=== PATIENT | male | born 1980 | race Caucasian/White ===

== ENCOUNTER 2018-08-06 20:56 | Emergency (ER) | payer OTHER ==
[~2018-08-06] VITALS: Ht 182.9 cm; Wt 102.1 kg
[2018-08-06] MEDS ORDERED: [UNRECOGNIZED DRUG - CODE] MC (21:26)
[2018-08-06] MEDS ORDERED: BLOOD PRESSURE (21:26)
[2018-08-06] MEDS ORDERED: LIDOCAINE 1% INJ 20 ML 20 ML VIAL INJ ONE (21:45)
--- NOTE | 2018-08-06 22:05 | ED Upper Extremity ---
General Chief Complaint: Upper Extremity Stated Complaint: FISH HOOK R HAND INDEX/OLDER LAC R LITTLE FINGER Nursing Triage Note: FISH HOOK IN RIGHT THUMB Nursing Sepsis Screen: No Definite Risk History of Present Illness Date Seen by Provider: Aug 06, 2018 Time Seen by Provider: 21:20 Initial Comments 38-year-old male presents with a fish hook in his right thumb. He has already cut the hooks off on the other 2. He attempted to remove the hook from his thumb which was unsuccessful. In addition he had a laceration to the ulnar side of his fifth finger on the right hand, he reports the wound became infected and he removed the sutures and it dehisced. He is currently on an antibiotic for that. Onset: just prior to arrival Pain/Injury Location: right thumb Method of Injury: incised (with fishhook) Allergies and Home Medications Allergies Coded Allergies: No Known Drug Allergies (Unverified , 08/06/18) Patient Home Medication List Home Medication List Reviewed: Yes Review of Systems Constitutional: no symptoms reported, see HPI Skin: see HPI, other (fishhook right thumb) All Other Systems Reviewed Negative Unless Noted: Yes Past Ogygzcd-Yiifqk-Uwtzqv Hx Past Med/Social Hx: Reviewed Nursing Past Med/Soc Hx Patient Social History Alcohol Use: Denies Use Recreational Drug Use: No Smoking Status: Current Everyday Smoker Type Used: Cigarettes 2nd Hand Smoke Exposure: Yes Recent Foreign Travel: No Contact w/Someone Who Travel: No Recent Infectious Disease Expo: No Recent Hopitalizations: No Immunizations Up To Date Tetanus Booster (TDap): Less than 5yrs Seasonal Allergies Seasonal Allergies: No Past Medical History Surgeries: Yes (HERNIA, CARDIAC STENT, RIGHT KNEE) Appendectomy, Orthopedic Respiratory: No Cardiac: Yes Coronary Artery Disease, Endocarditis, Hypertension Neurological: No Genitourinary: No Gastrointestinal: No Musculoskeletal: No Endocrine: No HEENT: No Cancer: No Psychosocial: No Integumentary: Yes Recent Skin Changes Blood Disorders: No Adverse Reaction/Blood Tranf: No Physical Exam Vital Signs Vital Signs - First Documented 08/06/18 21:15 Temp 97.7 Pulse 102 Resp 20 B/P (MAP) 135/95 (108) Pulse Ox 97 O2 Delivery Room Air Capillary Refill : Less Than 3 Seconds Height, Weight, BMI Height: 6'0" Weight: 225lbs. oz. 102.981850ee; BMI Method:Stated General Appearance: WD/WN, no apparent distress Cardiovascular: normal peripheral pulses, regular rate, rhythm Respiratory: chest non-tender, lungs clear, normal breath sounds Hand: Right, abrasions (with fishhook in pad of right thumb) Neurologic/Tendon: normal sensation, normal motor functions, normal tendon functions Neurologic/Psychiatric: no motor/sensory deficits, alert, normal mood/affect, oriented x 3 Skin: normal color, warm/dry, other (wound to the ulnar side of right fifth finger, healing by secondary intention, no erythema, drainage or warmth. Full range of motion to the thumb and fifth digit on the right, resisted flex/ext V/ V.) Procedures/Interventions I&D : Blade Size: 11 I & D Procedure: betadine prep Progress Using sterile technique, a small incision made at site of hook, able to easily remove fish hook at that time. Patient tolerated procedure well. The wound was copiously irrigated with 500 ML's of sterile saline. Triple antibiotic ointment and sterile dressing placed. Progress/Results/Core Measures Results/Orders My Orders Orders - JUAN MANUEL LIGHT Lidocaine 1% Inj 20 Ml (Xylocaine 1% Inj (08/06/18 21:45) Medications Given in ED Current Medications Medications Dose Ordered Sig/Rani Route Start Time Stop Time Status Last Admin Dose Admin Lidocaine HCl 20 ml ONCE ONCE INJ 08/06/18 21:45 08/06/18 21:46 DC 08/06/18 21:45 20 ML Vital Signs/I&O 08/06/18 08/06/18 21:15 22:08 Temp 97.7 97.7 Pulse 102 102 Resp 20 20 B/P (MAP) 135/95 (108) 135/95 (108) Pulse Ox 97 97 O2 Delivery Room Air Blood Pressure Mean: 108 Departure Impression Primary Impression: [place] injury to finger Qualified Codes: S69.91XA - Unspecified injury of right wrist, hand and finger (s), initial encounter Disposition: 01 HOME, SELF-CARE Condition: Improved Departure-Patient Inst. Decision time for Depature: 21:55 Referrals: NO,LOCAL PHYSICIAN (PCP/Family) Primary Care Physician Patient Instructions: Wound Care (DC) Add. Discharge Instructions: Clean wound to right thumb and right fifth with peroxide and apply triple antibiotic and Band-Aid 3 times daily. Continue to take your antibiotic as previously prescribed. You may take Tylenol 650 mg alternating with ibuprofen 600 mg every 4 hours for pain or fever. Return to emergency department for new, urgent health care needs. All discharge instructions reviewed with patient and/or family. Voiced understanding. JUAN MANUEL LIGHT Aug 06, 2018 22:05
[2018-08-06 22:08] VITALS: BP 135/95
== END 2018-08-06 22:08 | disposition home or self-care (01) ==
LOC: ER 20:58
DX: S60.351A Superficial foreign body of right thumb, initial encounter (principal); I25.10 Atherosclerotic heart disease of native coronary artery without angina pectoris; I10 Essential (primary) hypertension; F17.210 Nicotine dependence, cigarettes, uncomplicated; Z95.5 Presence of coronary angioplasty implant and graft; Z90.49 Acquired absence of other specified parts of digestive tract; Z86.69 Personal history of other diseases of the nervous system and sense organs; W26.8XXA Contact with other sharp object(s), not elsewhere classified, initial encounter